=== PATIENT | female | born 1990 | race Caucasian/White ===

== ENCOUNTER 2017-06-01 07:11 | Day surgery (SDC) | payer MEDICAID ==
[~2017-06-01] VITALS: Ht 157.5 cm; Wt 108.9 kg
--- NOTE | ~2017-06-01 | OP ---
PATIENT NAME: MATT MEDEROS MEDICAL RECORD: [id number] :89 LOCATION:[facility] ADMISSION DATE: SURGEON: MATEO WOOD MD DATE OF OPERATION: 06/01/2017 PREOPERATIVE DIAGNOSES: Chronic pharyngitis, adenotonsillar hypertrophy. POSTOPERATIVE DIAGNOSES: Chronic pharyngitis, adenotonsillar hypertrophy. PROCEDURE: Tonsillectomy and adenoidectomy. SURGEON: Mateo Wood MD ANESTHESIA: General orotracheal. BLOOD LOSS: Less than 5 cc. SPECIMENS: Right and left tonsil. COMPLICATIONS: None. DISPOSITION: Recovery stable. PROCEDURE NOTE: She was brought to the operating room and placed in supine position, sedated and intubated by anesthesia. The eyes were taped. Table was turned 90 degrees. Head drapes were applied and she was positioned for tonsillectomy. Using a headlight, a Yomaira-Yohan mouth gag was carefully inserted and elevated on a towel on her chest. The palate was examined and palpated as normal. A red rubber catheter was placed to the right side of the nose and pharynx and grasped with tonsil clamp to retract the soft palate. Using a mirror, the nasopharynx was examined. Suction cautery on a setting of 35 was used to ablate and suction the adenoid pad with no significant bleeding. The right tonsil was grasped at the superior pole with a straight Allis clamp. Spatula tip cautery on a setting of 9 was used to dissect out the tonsil along its capsule, preserving the anterior and posterior tonsillar pillar. The left tonsil was removed in same fashion. Then, both sides of the nose were irrigated with saline. The pharynx was suctioned. Tonsillar fossae were agitated. Suction cautery on a setting of 20 was used to control minimal oozing. With the field clean and dry, the Yomaira-Yohan mouth gag was let down and removed. She was awakened, extubated and transported to recovery in good condition. No complications. TRANSINT:[id number] Voice Confirmation ID: [id number] DOCUMENT ID: [id number] MATEO WOOD MD at 1357 CC: [id number] DICTATION DATE: 06/01/17 1119 [facility]ITCHER: 06/01/17 1315 [facility] 06/01/17 [facility] [address] [place] [address]
[2017-06-01 07:50] VITALS: BP 115/72; Ht 157.5 cm; Wt 108.9 kg
[2017-06-01 08:06] LABS: HEMATOCRIT 42.8 % (36.0-48.0); HEMOGLOBIN 14.1 g/dL (12-16); MCH 31.3 pg (26.0-34.0); MCHC 32.9 g/dL (31.0-37.0); MCV 95.1 fL (80.0-100.0); MEAN PLATELET VOLUME 10.3 fL (7.4-10.4); RBC 4.5 10x6/uL (4.00-5.40); RDW 12.4 % (11.5-14.5); WBC 9.2 10x3/uL (4.8-10.8)
== END 2017-06-01 12:10 | disposition home or self-care (01) ==
LOC: D.OPS 07:11 → D.PAN 07:45 → D.OPS 07:45
PROVIDERS: Anesthesiology
DX: J31.2 Chronic pharyngitis (principal); J35.3 Hypertrophy of tonsils with hypertrophy of adenoids; Z01.812 Encounter for preprocedural laboratory examination